=== PATIENT | male | born 1965 | race African-American/Black ===

== ENCOUNTER 2021-10-14 18:31 | Emergency (ER) | payer OTHER ==
[2021-10-14 18:51] VITALS: BP 139/81; PULSE 87; TEMP 97.9; BMI 26.9
[2021-10-14] MEDS ORDERED: levETIRAcetam 500 MG TABLET (FP) PO ONE ×2 (18:53→19:01)
[2021-10-14] MEDS ORDERED: risperiDONE 2 MG TABLET PO ONE (18:58)
[2021-10-14] MEDS ORDERED: risperiDONE 0.5 MG TABLET ONE (19:02)
[2021-10-14 19:19] LABS: EOS % 4.3 % (0-4.5); HEMATOCRIT 41.1 % (35.4-49); HEMOGLOBIN 13.6 GM/dL (11.7-16.9); LYMPH % 51.3 % (8-40); MCH 30.3 pg (25.7-33.7); MCHC 33.2 g/dl (32.0-35.9); MEAN CELL VOLUME 91.3 fl (80-96); MEAN PLT VOLUME 6.9 fl (7.5-11.1); MONO % 6.4 % (3.8-10.2); PLATELET COUNT 263 10^3/uL (134-434); RBC 4.51 M/mm3 (4.00-5.60); RDW 14.5 % (11.9-15.9); WHITE BLOOD COUNT 6.2 K/mm3 (4.0-10.0)
[2021-10-14 19:37] LABS: CALCIUM 9.1 mg/dL (8.5-10.1)
[2021-10-14 19:38] LABS: ALBUMIN 4.2 g/dl (3.4-5.0); BLOOD UREA NITROGEN 6.9 mg/dL (7-18)
[2021-10-14 19:41] LABS: CREATININE 0.8 mg/dL (0.55-1.3)
[2021-10-14 19:42] LABS: TOT PROT 7.7 g/dl (6.4-8.2)
[2021-10-14 19:43] LABS: BILIRUBIN,TOTAL 0.4 mg/dL (0.2-1)
== END 2021-10-14 20:53 | disposition home or self-care (01) ==
LOC: JER 18:31
DX: G40.89 Other seizures (principal)
CPT/HCPCS: 36415; 70450-TC; 71045-TC-FY; 72125-TC; 80053; 84484; 85025; 93005; 93010; 99285-25